=== PATIENT | female | born 1940 | race Caucasian/White ===

== ENCOUNTER 2018-12-07 06:32 | Day surgery (SDC) | payer MEDICARE, OTHER ==
[~2018-12-07] VITALS: Ht 160 cm; Wt 61.1 kg
[2018-12-07] VITALS (16 sets, daily range): BP systolic 147–172; BP diastolic 57–80
[~2018-12-07 06:32] MED LIST: ATOR10TA87 PO; CHOL100046 PO; LACT10SO67 PO; LEVO25TA2 PO; LOSA25TA96 PO; MONT10TA24 PO; OMEP40CA37 PO; OXYB5TAB11 PO
[2018-12-07] MEDS ORDERED: CICL6.1H4 INH (06:50)
[2018-12-07] MEDS ORDERED: normal saline 1000ml 1,000 ML IV PRN (07:00)
[2018-12-07] MEDS ORDERED: MILN50TA PO (07:00)
[2018-12-07 07:35] LABS: BASOPHILS % (AUTO) 0.5 % (0-1); EOSINOPHILS # (AUTO) 0.1 X10'3 (0-0.9); EOSINOPHILS % (AUTO) 1.1 % (0-6); HEMATOCRIT 40.5 % (35.0-45.0); HEMOGLOBIN 13.8 g/dl (12.0-16.0); LYMPHOCYTES # (AUTO) 0.5 X10'3 (1.1-4.8); LYMPHOCYTES % (AUTO) 7.5 % (21-51); MEAN CORPUSCULAR HEMOGLOBIN 31.6 PG (27.0-31.0); MEAN CORPUSCULAR VOLUME 93.1 FL (78-98); MEAN PLATELET VOLUME 7.5 FL (7.4-10.4); MONOCYTES # (AUTO) 0.5 X10'3 (0-0.9); MONOCYTES % (AUTO) 7.9 % (2-12); NEUTROPHILS # (AUTO) 5.2 X10'3 (1.8-7.7); PLATELET COUNT 236 X10'3 (140-440); RED BLOOD COUNT 4.35 X10'6 (4.20-5.60); RED CELL DISTRIBUTION WIDTH 15.8 % (11.5-14.5); WHITE BLOOD COUNT 6.3 X10'3 (4.5-11.0)
[2018-12-07 07:49] LABS: ALBUMIN 3.3 G/DL (3.4-5.0); ANION GAP 4 (8-16); BLOOD UREA NITROGEN 15 MG/DL (7-18); BUN/CREATININE RATIO 18.1 (6.6-38.0); CALCIUM 9.3 MG/DL (8.5-10.1); CHLORIDE 107 MMOL/L (99-107); CREATININE 0.83 MG/DL (0.40-0.90); GLUCOSE 80 MG/DL (70-104); POTASSIUM 3.9 MMOL/L (3.5-5.1); SODIUM 142 MMOL/L (135-145); TOTAL CARBON DIOXIDE 31.2 MMOL/L (24-32); eGFR 66 ML/MIN
[2018-12-07] MEDS ORDERED: LIDOcaine 1%/PF 5ML 10 MG/ML VIAL SQ ONE (08:45)
[2018-12-07] MEDS ORDERED: fentaNYL/PF 50MCG/1 ML 2ML syringe IV PRN (08:45)
[2018-12-07] MEDS ORDERED: midazolam 2 mg/2 ml injection IV PRN (08:45)
[2018-12-07] MEDS ORDERED: midazolam 2 mg/2 ml injection ONE (09:28)
[2018-12-07] MEDS ORDERED: fentaNYL/PF 50MCG/1 ML 2ML syringe ONE (09:28)
== END 2018-12-07 13:40 | disposition home or self-care (01) ==
LOC: SSTAY O 06:32
PROVIDERS: ATTEND Radiology Vascular & Interventional Radiology
DX: R91.1 Solitary pulmonary nodule (principal); E03.9 Hypothyroidism, unspecified; I10 Essential (primary) hypertension; K21.9 Gastro-esophageal reflux disease without esophagitis; J45.909 Unspecified asthma, uncomplicated; Z98.890 Other specified postprocedural states; Z90.710 Acquired absence of both cervix and uterus; Z90.721 Acquired absence of ovaries, unilateral; Z85.820 Personal history of malignant melanoma of skin; Z88.6 Allergy status to analgesic agent; Z88.8 Allergy status to other drugs, medicaments and biological substances
CPT/HCPCS: 32405; 36415; 71045; 77012; 80048; 85025; 85610; J2250; J3010; J7030; 88173; 88305; 88312; 88342; 88360; 99152; 99153

== ENCOUNTER 2021-11-20 11:41 | Day surgery (SDC) | payer MEDICARE, OTHER ==
[2021-11-15 14:33] LABS: ALBUMIN 3.4 G/DL (3.4-5.0); ANION GAP 5 (8-16); BLOOD UREA NITROGEN 23 MG/DL (7-18); BUN/CREATININE RATIO 20.2 (6.6-38.0); CALCIUM 8.5 MG/DL (8.5-10.1); CHLORIDE 104 MMOL/L (99-107); CREATININE 1.14 MG/DL (0.40-0.90); GLUCOSE 110 MG/DL (70-104); SODIUM 139 MMOL/L (135-145); TOTAL CARBON DIOXIDE 30.1 MMOL/L (24-32); eGFR 46 ML/MIN
[2021-11-15 16:13] LABS: BASOPHILS % (AUTO) 0.5 % (0-1); EOSINOPHILS # (AUTO) 0.1 X10'3 (0-0.9); EOSINOPHILS % (AUTO) 1.5 % (0-6); HEMATOCRIT 38.6 % (35.0-45.0); HEMOGLOBIN 12.8 g/dl (12.0-16.0); LYMPHOCYTES # (AUTO) 0.7 X10'3 (1.1-4.8); MEAN CORPUSCULAR HEMOGLOBIN 30.5 PG (27.0-31.0); MEAN CORPUSCULAR VOLUME 92.2 FL (78-98); MONOCYTES # (AUTO) 0.5 X10'3 (0-0.9); MONOCYTES % (AUTO) 7.5 % (2-12); NEUTROPHILS # (AUTO) 5.4 X10'3 (1.8-7.7); NEUTROPHILS % (AUTO) 79.5 % (42-75); PLATELET COUNT 200 X10'3 (140-440); RED BLOOD COUNT 4.19 X10'6 (4.20-5.60); RED CELL DISTRIBUTION WIDTH 15.4 % (11.5-14.5); WHITE BLOOD COUNT 6.8 X10'3 (4.5-11.0)
[2021-11-15 16:17] LABS: APTT 26 SECONDS (22-32)
[2021-11-20] VITALS (8 sets, daily range): BP systolic 112–165; BP diastolic 40–62
[~2021-11-20] VITALS: Ht 160 cm; Wt 67.4 kg
[~2021-11-20 11:41] MED LIST changes: -ATOR10TA87 PO; +CICL6.1H4 INH; -LOSA25TA96 PO; +MILN50TA PO; +MONT-40 PO; -MONT10TA24 PO; +OMEP40CA21 PO; -OMEP40CA37 PO; -OXYB5TAB11 PO; +OXYB5TAB16 PO
[2021-11-20] MEDS ORDERED: normal saline 1,000 ML IV SCH (12:15)
[2021-11-20] MEDS ORDERED: diphenhydrAMINE 25mg capsule PO PRN (12:15)
[2021-11-20] MEDS ORDERED: LORazepam 0.5 MG tablet PO PRN (12:15)
[2021-11-20] MEDS ORDERED: POTA-82 PO (12:43)
[2021-11-20] MEDS ORDERED: LOSA25TA41 PO (12:43)
[2021-11-20] MEDS ORDERED: FURO40TA4 PO (12:43)
[2021-11-20] MEDS ORDERED: CARV6.253 PO (12:43)
[2021-11-20] MEDS ORDERED: ATOR40TA72 PO (12:44)
[2021-11-20] MEDS ORDERED: FLUT100B3 PO (12:44)
[2021-11-20] MEDS ORDERED: ASPI-1071 PO (12:45)
[2021-11-20] MEDS ORDERED: nitroGLYCERIN-Tridil 50MG/D5W 250 ML IV ONE (14:49)
[2021-11-20] MEDS ORDERED: iohexol 350MG/ML 100ml bottle IV ONE ×2 (14:50→15:43)
[2021-11-20] MEDS ORDERED: fentaNYL/PF 50MCG/1 ML 2ML syringe ONE (14:50)
[2021-11-20] MEDS ORDERED: heparin 1,000unit/ml 10ml vial 10 ML ONE (14:50)
[2021-11-20] MEDS ORDERED: verapamil 2.5 mg/ml inj IV ONE (14:50)
[2021-11-20] MEDS ORDERED: midazolam 1 mg/ML 2ml injection ONE (14:50)
[2021-11-20] MEDS ORDERED: LIDOCAINE 1% w/preservative (10 MG/ML) inj. 10mL VIAL ONE (14:50)
[2021-11-20] MEDS ORDERED: clopidogrel 300mg tablet ONE (15:48)
[2021-11-20] MEDS ORDERED: iohexol 350 MG/ML 50ML vial IV ONE (15:57)
== END 2021-11-20 19:30 | disposition home or self-care (01) ==
LOC: SSTAY O 11:41
PROVIDERS: ATTEND Internal Medicine Interventional Cardiology
DX: R94.39 Abnormal result of other cardiovascular function study (principal); R07.89 Other chest pain; I25.10 Atherosclerotic heart disease of native coronary artery without angina pectoris; I11.0 Hypertensive heart disease with heart failure; I50.9 Heart failure, unspecified; J45.909 Unspecified asthma, uncomplicated; E03.9 Hypothyroidism, unspecified; E78.5 Hyperlipidemia, unspecified; Z86.711 Personal history of pulmonary embolism; Z79.82 Long term (current) use of aspirin; Z79.899 Other long term (current) drug therapy; Z95.5 Presence of coronary angioplasty implant and graft; Z85.820 Personal history of malignant melanoma of skin; Z88.5 Allergy status to narcotic agent
CPT/HCPCS: 36415; 80048; 85025; 85610; 85730; 93458; 99152; 99153; C1725; C1751; C1769; C1874; C1894; C9600; J1644; J2250; J3010; J3490; J7030; Q0163; Q9967; A4620; A5120

== ENCOUNTER 2022-03-08 13:37 | Emergency (ER) | payer MEDICARE, OTHER ==
[~2022-03-08] VITALS: Ht 160 cm; Wt 68.2 kg
[~2022-03-08 13:37] MED LIST changes: +ASPI-1071 PO; +ATOR40TA72 PO; +CARV6.253 PO; -CICL6.1H4 INH; +FLUT100B3 PO; +FURO40TA4 PO; -LACT10SO67 PO; +LOSA25TA41 PO; -MILN50TA PO; +POTA-82 PO
[2022-03-08 14:37] LABS: BASOPHILS % (AUTO) 0.3 % (0-1); EOSINOPHILS # (AUTO) 0.1 X10'3 (0-0.9); EOSINOPHILS % (AUTO) 1.7 % (0-6); HEMATOCRIT 38.6 % (35.0-45.0); LYMPHOCYTES # (AUTO) 0.8 X10'3 (1.1-4.8); LYMPHOCYTES % (AUTO) 11.9 % (21-51); MEAN CORPUSCULAR HEMOGLOBIN 30.7 PG (27.0-31.0); MEAN CORPUSCULAR HGB CONC 33.7 g/dL (33.0-36.5); MEAN PLATELET VOLUME 7.7 FL (7.4-10.4); MONOCYTES # (AUTO) 0.5 X10'3 (0-0.9); MONOCYTES % (AUTO) 6.5 % (2-12); NEUTROPHILS # (AUTO) 5.5 X10'3 (1.8-7.7); NEUTROPHILS % (AUTO) 79.6 % (42-75); PLATELET COUNT 227 X10'3 (140-440); RED BLOOD COUNT 4.25 X10'6 (4.20-5.60); RED CELL DISTRIBUTION WIDTH 15.8 % (11.5-14.5); WHITE BLOOD COUNT 6.9 X10'3 (4.5-11.0)
[2022-03-08 14:54] LABS: ALANINE AMINOTRANSFERASE 17 U/L (12-78); ALBUMIN 3.5 G/DL (3.4-5.0); ALBUMIN/GLOBULIN RATIO 0.9 (1.1-1.5); ALKALINE PHOSPHATASE 54 IU/L (46-116); ANION GAP 9 (8-16); ASPARTATE AMINO TRANSFERASE 19 U/L (10-37); BILIRUBIN,TOTAL 0.7 MG/DL (0.1-1.0); BLOOD UREA NITROGEN 16 MG/DL (7-18); BUN/CREATININE RATIO 14.8 (6.6-38.0); CALCIUM 8.6 MG/DL (8.5-10.1); CHLORIDE 105 MMOL/L (99-107); CREATININE 1.08 MG/DL (0.40-0.90); GLUCOSE 95 MG/DL (70-104); POTASSIUM 3.7 MMOL/L (3.5-5.1); SODIUM 143 MMOL/L (135-145); TOTAL CARBON DIOXIDE 28.7 MMOL/L (24-32); TOTAL PROTEIN 7.4 G/DL (6.4-8.2); eGFR 48 ML/MIN
[2022-03-08] MEDS ORDERED: aspirin 81mg tab.chew PO ONE (15:45)
[2022-03-08 17:37] VITALS: BP 141/62
== END 2022-03-08 17:39 | disposition home or self-care (01) ==
LOC: ER 13:38
DX: R07.9 Chest pain, unspecified (principal); R60.0 Localized edema; R06.02 Shortness of breath; I11.9 Hypertensive heart disease without heart failure; E78.00 Pure hypercholesterolemia, unspecified; J45.909 Unspecified asthma, uncomplicated; K21.9 Gastro-esophageal reflux disease without esophagitis; E03.9 Hypothyroidism, unspecified; Z88.6 Allergy status to analgesic agent; Z88.5 Allergy status to narcotic agent; Z79.899 Other long term (current) drug therapy; Z79.82 Long term (current) use of aspirin
CPT/HCPCS: 36415; 71045; 80053; 83880; 84484; 85025; 93005; 99285

== ENCOUNTER 2024-08-10 09:15 | Outpatient (CLI) | payer MEDICARE, MEDICAID ==
[~2024-08-10 09:15] MED LIST changes: -OXYB5TAB16 PO; +OXYB5TAB21 PO; +POTA-366 PO; -POTA-82 PO
== END 2024-08-10 23:59 | disposition home or self-care (01) ==
LOC: MRI02 09:15
PROVIDERS: ATTEND Nurse Practitioner
DX: M47.817 Spondylosis without myelopathy or radiculopathy, lumbosacral region (principal); M51.379 Other intervertebral disc degeneration, lumbosacral region without mention of lumbar back pain or lower extremity pain; M43.16 Spondylolisthesis, lumbar region; M48.07 Spinal stenosis, lumbosacral region; M41.86 Other forms of scoliosis, lumbar region; M54.59 Other low back pain
CPT/HCPCS: 72148